=== PATIENT | male | born 1955 | race American Indian/Alaskan Native ===

== ENCOUNTER 2017-01-20 07:43 | Emergency (ER) | payer OTHER ==
[2017-01-20 08:28] LABS: Hematocrit 48.2 % (35.5-45.6); Mean Corpuscular HGB Conc 33 % (32-34); Mean Corpuscular Hemoglobin 28 pg (28-32); Mean Corpuscular Volume 85 fl (84-94); Platelet Count 136 K/mm3 (140-440); Red Cell Distribution Width 15.2 % (13.2-15.2)
[2017-01-20 08:31] LABS: White Blood Count 20.4 K/mm3 (4.5-11.0)
[2017-01-20 08:44] LABS: Anion Gap 22 mmol/L; BUN/Creatinine Ratio 20; Blood Urea Nitrogen 18 mg/dL (9-20); Calcium 9.4 mg/dL (8.4-10.2); Carbon Dioxide 21 mmol/L (22-30); Chloride 96.6 mmol/L (98-107); Glucose 154 mg/dL (75-100); Potassium 3.7 mmol/L (3.6-5.0); Sodium 136 mmol/L (137-145)
[2017-01-20 09:06] LABS: Bilirubin,Urine NEG (Negative); Blood,Urine SM (Negative); Ketones,Urine 20 mg/dL (Negative); Leukocyte Esterase,Urine SM (Negative); Mucus,Urine 3+ /HPF; Nitrite,Urine NEG (Negative)
[2017-01-20] MEDS ORDERED: ZOFRAN IV ONE (09:42)
[2017-01-20] MEDS ORDERED: CARAFATE PO ONE (09:42)
[2017-01-20] MEDS ORDERED: BENTYL PO ONE (09:42)
[2017-01-20] MEDS ORDERED: PEPCID IV ONE (09:42)
[2017-01-20] MEDS ORDERED: ALUM-MAG HYDROX-SIMETH 200-200-20MG/5ML PO ONE (09:42)
[2017-01-20] MEDS ORDERED: NACL 0.9% 1000 ML 2,000 ML IV ONE (09:42)
[2017-01-20] MEDS ORDERED: HYDROGEN PEROXIDE ONE (09:44)
--- NOTE | 2017-01-20 09:44 | Emergency Department Report ---
ED General Adult HPI - General Chief complaint: Nausea/Vomiting/Diarrhea Stated complaint: NAUSEA/VOMITING Time Seen by Provider: 01/20/17 09:27 Source: patient, RN notes reviewed Mode of arrival: Ambulatory Limitations: No Limitations - History of Present Illness Initial comments: This is a 62-year-old male. The patient is previously known to this provider. His primary care doctor is Dr. Alicia. He reports no past medical history. He presents to the ER with a complaint of left-sided ear pain, no tinnitus or vertigo, diffuse abdominal cramping, and multiple episodes of nausea, vomiting and diarrhea. His symptoms have been going on for 3 days. He describes multiple episodes of nonbloody emesis, sometimes green. Describes multiple episodes of diarrhea. No sick contacts at home, no recent antibiotic use. His symptoms are constant. They worsen when he eats. However, he is able to drink. He denies testicular pain, and he denies irritative/obstructive urinary symptoms. Abdominal cramping is "all over." -: Gradual Location: abdomen Radiation: abdomen Severity scale (0 -10): 10 Quality: other (cramping) Consistency: constant Improves with: rest Worsens with: eating Associated Symptoms: malaise, nausea/vomiting, weakness - Related Data Previous Rx's Medication Instructions Recorded Last Taken Type Dicyclomine [Bentyl] 10 mg PO QID PRN #20 capsule 01/20/17 Unknown Rx Ondansetron [Zofran Odt] 4 mg PO Q8HR PRN #20 tab.rapdis 01/20/17 Unknown Rx Promethazine [Phenergan SUPPOS] 50 mg RI Q6H PRN #20 supp.rect 01/20/17 Unknown Rx Allergies Allergy/AdvReac Type Severity Reaction Status Date / Time clindamycin [From Cleocin] Allergy Hives Verified 01/20/17 09:45 ED Review of Systems ROS: Stated complaint: NAUSEA/VOMITING Other details as noted in HPI Constitutional: malaise. denies: fever Eyes: denies: eye discharge ENT: denies: epistaxis Respiratory: denies: cough Cardiovascular: denies: chest pain Gastrointestinal: nausea, vomiting, diarrhea ED Past Medical Hx - Past Medical History Previous Medical History?: No - Surgical History Past Surgical History?: No - Social History Smoking Status: Current Every Day Smoker Substance Use Type: Other - Medications Home Medications: Home Medications Medication Instructions Recorded Confirmed Last Taken Type Dicyclomine [Bentyl] 10 mg PO QID PRN #20 capsule 01/20/17 Unknown Rx Ondansetron [Zofran Odt] 4 mg PO Q8HR PRN #20 tab.rapdis 01/20/17 Unknown Rx Promethazine [Phenergan SUPPOS] 50 mg RI Q6H PRN #20 supp.rect 01/20/17 Unknown Rx ED Physical Exam - General Limitations: No Limitations General appearance: alert, in no apparent distress - Head Head exam: Present: atraumatic, normocephalic - Eye Eye exam: Present: normal appearance, PERRL, EOMI, other (visual acuity intact to finger counting, color perception, reading at a close distance). Absent: nystagmus - ENT ENT exam: Present: normal exam, normal orophraynx, mucous membranes moist, TM's normal bilaterally, normal external ear exam, other (there is no mastoid tenderness. No vesicles noted) - Neck Neck exam: Present: normal inspection, full ROM. Absent: tenderness, meningismus - Respiratory Respiratory exam: Present: normal lung sounds bilaterally. Absent: respiratory distress, wheezes, chest wall tenderness - Cardiovascular Cardiovascular Exam: Present: normal rhythm, tachycardia, normal heart sounds. Absent: systolic murmur, diastolic murmur, rubs, gallop - GI/Abdominal GI/Abdominal exam: Present: soft, normal bowel sounds. Absent: distended, tenderness, guarding, rebound, rigid, pulsatile mass - Rectal Rectal exam: Present: deferred - Extremities Exam Extremities exam: Present: normal inspection, full ROM, normal capillary refill. Absent: calf tenderness - Back Exam Back exam: Present: normal inspection, full ROM. Absent: paraspinal tenderness , vertebral tenderness - Neurological Exam Neurological exam: Present: alert, oriented X3, normal gait, other (Extraocular movements intact. Tongue midline. No facial droop. Facial sensation intact to light touch in the V1, V2, V3 distribution bilaterally. 5 and 5 strength in 4 extremities.. Sensation is intact to light touch in 4 extremities.). Absent : motor sensory deficit - Psychiatric Psychiatric exam: Present: normal affect, normal mood - Skin Skin exam: Present: warm, dry, intact, normal color. Absent: rash ED Course Vital Signs 01/20/17 01/20/17 01/20/17 07:59 08:44 09:15 Temperature 98.2 F 97.8 F 98.5 F Pulse Rate 115 H 98 H 111 H Respiratory 18 16 16 Rate Blood Pressure 122/86 Blood Pressure 145/83 129/80 [Left] O2 Sat by Pulse 99 99 98 Oximetry 01/20/17 01/20/17 01/20/17 09:16 11:30 13:06 Temperature 98.5 F Pulse Rate 84 84 Respiratory 21 20 Rate Blood Pressure Blood Pressure 127/80 130/77 [Left] O2 Sat by Pulse 98 98 Oximetry ED Medical Decision Making - Lab Data Result diagrams: 01/20/17 08:06 01/20/17 08:06 Vital Signs 01/20/17 01/20/17 01/20/17 07:59 08:44 09:15 Temperature 98.2 F 97.8 F 98.5 F Pulse Rate 115 H 98 H 111 H Respiratory 18 16 16 Rate Blood Pressure 122/86 Blood Pressure 145/83 129/80 [Left] O2 Sat by Pulse 99 99 98 Oximetry 01/20/17 01/20/17 09:16 11:30 Temperature Pulse Rate 84 Respiratory 21 20 Rate Blood Pressure Blood Pressure 127/80 [Left] O2 Sat by Pulse 98 98 Oximetry Lab Results 01/20/17 01/20/17 01/20/17 Range/Units 08:06 08:06 08:27 WBC 20.4 H (4.5-11.0) K/mm3 RBC 5.70 H (3.65-5.03) M/mm3 Hgb 16.0 H (11.8-15.2) gm/dl Hct 48.2 H (35.5-45.6) % MCV 85 (84-94) fl MCH 28 (28-32) pg MCHC 33 (32-34) % RDW 15.2 (13.2-15.2) % Plt Count 136 L (140-440) K/mm3 Add Manual Diff Complete Total Counted 100 Band Neutrophils % 0 % Lymphocytes % (Manual) 2.0 L (13.4-35.0) % Reactive Lymphs % (Man) 2.0 % Monocytes % (Manual) 3.0 (0.0-7.3) % Eosinophils % (Manual) 0 (0.0-4.3) % Basophils % (Manual) 0 (0.0-1.8) % Metamyelocytes % 0 % Myelocytes % 0 % Promyelocytes % 0 % Blast Cells % 0 % Nucleated RBC % Not Reportable Seg Neutrophils # Man 19.0 H (1.8-7.7) K/mm3 Band Neutrophils # 0.0 K/mm3 Lymphocytes # (Manual) 0.4 L (1.2-5.4) K/mm3 Abs React Lymphs (Man) 0.4 K/mm3 Monocytes # (Manual) 0.6 (0.0-0.8) K/mm3 Eosinophils # (Manual) 0.0 (0.0-0.4) K/mm3 Basophils # (Manual) 0.0 (0.0-0.1) K/mm3 Metamyelocytes # 0.0 K/mm3 Myelocytes # 0.0 K/mm3 Promyelocytes # 0.0 K/mm3 Blast Cells # 0.0 K/mm3 WBC Morphology Not Reportable Hypersegmented Neuts Not Reportable Hyposegmented Neuts Not Reportable Hypogranular Neuts Not Reportable Smudge Cells Not Reportable Toxic Granulation Rare Toxic Vacuolation Rare Dohle Bodies Not Reportable Pelger-Huet Anomaly Not Reportable Manpreet Rods Not Reportable Platelet Estimate Cons Clumped Platelets Not Reportable Plt Clumps, EDTA Not Reportable Large Platelets Not Reportable Giant Platelets Not Reportable Platelet Satelliting Not Reportable Plt Morphology Comment Not Reportable RBC Morphology Normal Dimorphic RBCs Not Reportable Polychromasia Not Reportable Hypochromasia Not Reportable Poikilocytosis Not Reportable Anisocytosis Not Reportable Microcytosis Not Reportable Macrocytosis Not Reportable Spherocytes Not Reportable Pappenheimer Bodies Not Reportable Sickle Cells Not Reportable Target Cells Not Reportable Tear Drop Cells Not Reportable Ovalocytes Not Reportable Helmet Cells Not Reportable [place] Bodies Not Reportable Sullivan Rings Not Reportable [place] Cells Not Reportable Bite Cells Not Reportable Crenated Cell Not Reportable Elliptocytes Not Reportable Acanthocytes (Spur) Not Reportable Rouleaux Not Reportable Hemoglobin C Crystals Not Reportable Schistocytes Not Reportable Malaria parasites Not Reportable Cornel Bodies Not Reportable Hem Pathologist Commnt No Sodium 136 L (137-145) mmol/L Potassium 3.7 (3.6-5.0) mmol/L Chloride 96.6 L (98-107) mmol/L Carbon Dioxide 21 L (22-30) mmol/L Anion Gap 22 mmol/L BUN 18 (9-20) mg/dL Creatinine 0.9 (0.8-1.5) mg/dL Estimated GFR > 60 ml/min BUN/Creatinine Ratio 20 % Glucose 154 H (75-100) mg/dL Calcium 9.4 (8.4-10.2) mg/dL Total Bilirubin (0.1-1.2) mg/dL Direct Bilirubin (0-0.2) mg/dL Indirect Bilirubin mg/dL AST (5-40) units/L ALT (7-56) units/L Alkaline Phosphatase (35-129) units/L Total Protein (6.3-8.2) g/dL Albumin (3.9-5) g/dL Albumin/Globulin Ratio % Lipase (13-60) units/L Urine Color [place] (Yellow) Urine Turbidity Clear (Clear) Urine pH 5.0 (5.0-7.0) Ur Specific [place] 1.029 (1.003-1.030) Urine Protein 100 mg/dl (Negative) mg/dL Urine Glucose (UA) Neg (Negative) mg/dL Urine Ketones 20 (Negative) mg/dL Urine Blood Sm (Negative) Urine Nitrite Neg (Negative) Urine Bilirubin Neg (Negative) Urine Urobilinogen 2.0 (<2.0) mg/dL Ur Leukocyte Esterase Sm (Negative) Urine WBC (Auto) 51.0 H (0.0-6.0) /HPF Urine RBC (Auto) 4.0 (0.0-6.0) /HPF U Epithel Cells (Auto) < 1.0 (0-13.0) /HPF Hyaline Casts 13 /LPF Urine Mucus 3+ /HPF 11/12/17 Range/Units 11:14 WBC (4.5-11.0) K/mm3 RBC (3.65-5.03) M/mm3 Hgb (11.8-15.2) gm/dl Hct (35.5-45.6) % MCV (84-94) fl MCH (28-32) pg MCHC (32-34) % RDW (13.2-15.2) % Plt Count (140-440) K/mm3 Add Manual Diff Total Counted Band Neutrophils % % Lymphocytes % (Manual) (13.4-35.0) % Reactive Lymphs % (Man) % Monocytes % (Manual) (0.0-7.3) % Eosinophils % (Manual) (0.0-4.3) % Basophils % (Manual) (0.0-1.8) % Metamyelocytes % % Myelocytes % % Promyelocytes % % Blast Cells % % Nucleated RBC % Seg Neutrophils # Man (1.8-7.7) K/mm3 Band Neutrophils # K/mm3 Lymphocytes # (Manual) (1.2-5.4) K/mm3 Abs React Lymphs (Man) K/mm3 Monocytes # (Manual) (0.0-0.8) K/mm3 Eosinophils # (Manual) (0.0-0.4) K/mm3 Basophils # (Manual) (0.0-0.1) K/mm3 Metamyelocytes # K/mm3 Myelocytes # K/mm3 Promyelocytes # K/mm3 Blast Cells # K/mm3 WBC Morphology Hypersegmented Neuts Hyposegmented Neuts Hypogranular Neuts Smudge Cells Toxic Granulation Toxic Vacuolation Dohle Bodies Pelger-Huet Anomaly Manpreet Rods Platelet Estimate Clumped Platelets Plt Clumps, EDTA Large Platelets Giant Platelets Platelet Satelliting Plt Morphology Comment RBC Morphology Dimorphic RBCs Polychromasia Hypochromasia Poikilocytosis Anisocytosis Microcytosis Macrocytosis Spherocytes Pappenheimer Bodies Sickle Cells Target Cells Tear Drop Cells Ovalocytes Helmet Cells [place] Bodies Sullivan Rings [place] Cells Bite Cells Crenated Cell Elliptocytes Acanthocytes (Spur) Rouleaux Hemoglobin C Crystals Schistocytes Malaria parasites Cornel Bodies Hem Pathologist Commnt Sodium (137-145) mmol/L Potassium (3.6-5.0) mmol/L Chloride (98-107) mmol/L Carbon Dioxide (22-30) mmol/L Anion Gap mmol/L BUN (9-20) mg/dL Creatinine (0.8-1.5) mg/dL Estimated GFR ml/min BUN/Creatinine Ratio % Glucose (75-100) mg/dL Calcium (8.4-10.2) mg/dL Total Bilirubin 0.90 (0.1-1.2) mg/dL Direct Bilirubin 0.2 (0-0.2) mg/dL Indirect Bilirubin 0.7 mg/dL AST 14 (5-40) units/L ALT 13 (7-56) units/L Alkaline Phosphatase 106 (35-129) units/L Total Protein 8.7 H (6.3-8.2) g/dL Albumin 4.1 (3.9-5) g/dL Albumin/Globulin Ratio 0.9 % Lipase 13 (13-60) units/L Urine Color (Yellow) Urine Turbidity (Clear) Urine pH (5.0-7.0) Ur Specific [place] (1.003-1.030) Urine Protein (Negative) mg/dL Urine Glucose (UA) (Negative) mg/dL Urine Ketones (Negative) mg/dL Urine Blood (Negative) Urine Nitrite (Negative) Urine Bilirubin (Negative) Urine Urobilinogen (<2.0) mg/dL Ur Leukocyte Esterase (Negative) Urine WBC (Auto) (0.0-6.0) /HPF Urine RBC (Auto) (0.0-6.0) /HPF U Epithel Cells (Auto) (0-13.0) /HPF Hyaline Casts /LPF Urine Mucus /HPF - Radiology Data Radiology results: report reviewed, image reviewed CT scan of the brain: No acute disease, ear exam are unremarkable. 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 His pancreatic lymphadenopathy of uncertain significance. No indication of acute or pancreatitis as noted, no pancreatic masses noted on this noncontrast exam. Extensive diverticulosis, but no diverticulitis. There are a few tiny retroperitoneal para-aortic lymph nodes. Calcifications noted on the abdominal aorta and iliac arteries. Infrarenal abdominal aortic aneurysm is noted at 3.7 cm. - Medical Decision Making Differential diagnosis, including but not limited to: Hepatitis, cirrhosis, pancreatitis, gastroenteritis, otitis cancer/tumor/malignancy, Assessment and plan: Assessment and plan: 62-year-old male with a primary complaint of abdominal cramping, nausea, vomiting, diarrhea. He is initially tachycardic however this resolved with IV fluids. He is given nonnarcotic pain medication and nausea medication. He is able to tolerate liquid feeds. His tachycardia resolved. His leukocytosis is appreciated, clinically the patient's presentation is most likely consistent with a viral gastroenteritis. A noncontrast CT scan of the brain was negative, and his head and neck, cranial nerve and neurologic examinations were unremarkable and within normal limits. There was no specific clinical or radiographic indication of shingles, zoster, mastoiditis, otitis externa, or otitis media. A noncontrast CT scan of the abdomen and pelvis demonstrated no acute surgical condition, but did demonstrate numerous incidental findings which require follow -up. Patient will be referred to his primary care doctor for his nonspecific adenopathy, and nonspecific pancreatic abnormality. Patient was given a copy of his CT scan report, instructed to follow up shortly, to exclude cancer, tumor , malignancy. His liver panel was unremarkable, there is no upper abdominal tenderness, he is not jaundiced, and his lipase is also unremarkable. Patient may have a component of chronic undiagnosed cirrhosis. This can be followed up by either his primary care doctor, or by gastroenterology. Patient given copy of his laboratory studies, CT scan reports, and he is instructed to abstain from alcohol consumption, abstain from ibuprofen and acetaminophen consumption, and he is instructed to follow-up in outpatient quarry equipment operator. Return precautions are reviewed. Critical care attestation.: If time is entered above; I have spent that time in minutes in the direct care of this critically ill patient, excluding procedure time. ED Disposition Clinical Impression: Nausea vomiting and diarrhea Disposition: DC-01 TO HOME OR SELFCARE Is pt being admited?: No Does the pt Need Aspirin: No Condition: Stable Instructions: Gastroenteritis (ED) Additional Instructions: Take the pain medication, nausea medications as needed/directed. Avoid consumption of alcohol, acetaminophen, ibuprofen, aspirin, Naprosyn until either a primary care doctor or quarry equipment operator there is you to do so. Symptoms today most likely coming from gastroenteritis/viral syndrome. However , CT scan of the abdomen and pelvis demonstrated numerous incidental findings which require follow-up. Follow-up with your primary care doctor within the next month. CT scan of the abdomen and pelvis suggested cirrhosis of the liver. This can and should be followed up by either your primary care doctor or quarry equipment operator within the next month. Dr. Kimberly Ceron is a local quarry equipment operator. CT scan of the abdomen and pelvis also suggested nonspecific lymph nodes in the abdomen/pelvis, and nonspecific pancreatic abnormalities. Follow-up with your primary care doctor or gastroenterology for this within the next month. Not following up for this as recommended a resultant undiagnosed tumor, cancer, malignancy. CT scan of the abdomen and pelvis also demonstrated a 3.7 cm abdominal aortic aneurysm. This is to be followed up by a vascular surgeon. Dr. David is a local vascular surgeon. Follow up with a vascular surgeon within the next 4-6 weeks. Return to the ER right away with new pain, worsened pain, migration of pain, fevers, chills, lethargy, irritability, projectile vomiting, change in mental status, confusion, inability to tolerate liquid feeds. Advance diet gently as tolerated, starting with bread, rice, apples, toast, then advance to solids as tolerated. Avoid consumption of heavy and spicy foods. Prescriptions: Dicyclomine [Bentyl] 10 mg PO QID PRN #20 capsule PRN Reason: Pain Ondansetron [Zofran Odt] 4 mg PO Q8HR PRN #20 tab.rapdis PRN Reason: Nausea Promethazine [Phenergan SUPPOS] 50 mg RI Q6H PRN #20 supp.rect PRN Reason: Nausea Referrals: PRIMARY CARE, [Primary Care Provider] - 3-5 Days DARIN ALICIA MD [Staff Physician] - 3-5 Days KIMBERLY CERON MD [Staff Physician] - 3-5 Days MICHOACANO DAVID MD [Staff Physician] - 3-5 Days Forms: Work/School Release Form(ED)
[2017-01-20 10:23] LABS: Basophils % (Manual) 0 % (0.0-1.8); Blastocytes % (Manual) 0 %; Eosinophils % (Manual) 0 % (0.0-4.3)
[2017-01-20 10:24] LABS: Diff Status Complete; Platelet Estimate Cons; RBC Morphology Normal; Toxic Granulation Rare; Toxic Vacuolation Rare
--- NOTE | 2017-01-20 10:49 | Cat Scan Report ---
CT HEAD WITHOUT CONTRAST: 01/20/17 07:43:00 CLINICAL: Left ear pain. TECHNIQUE: 2.5-mm noncontrast scans. COMPARISON:None FINDINGS: The ventricles and sulci are normal for age. No abnormal density. No mass or mass effect. No hemorrhage, edema or extra-axial collection. The sinuses are clear. Although this exam is not tailored for the ear, the left ear and left mastoid air cells are unremarkable. Normal orbits and soft tissues. The calvarium and skull base are intact. IMPRESSION: Normal study.
--- NOTE | 2017-01-20 11:02 | Cat Scan Report ---
CT ABDOMEN AND PELVIS WITHOUT CONTRAST: 01/20/17 07:43:00 CLINICAL:Abdominal pain. TECHNIQUE: Volumetric acquisition and 1.25 millimeter scan reconstructions from the lung bases through the pelvis. The study was performed without oral contrast. FINDINGS: Abdomen: The liver is small with the right lobe measuring 9.6 cm in length. However, normal liver contour with no nodularity or mass identified. Portosystemic collaterals are identified throughout the upper abdomen and there are gastric and splenic varices. No obvious portal vein thrombosis. The spleen is small and measures 9 cm in length. Normal gallbladder and bile ducts. Normal stomach, duodenum duodenum and pancreas. Too numerous to count small peripancreatic lymph nodes. A few tiny retroperitoneal para-aortic lymph nodes. No ascites and no pneumoperitoneum. The small bowel is normal. Diverticulosis throughout the colon but no signs of diverticulosis. The appendix is well limits of normal. Moderate calcification of the abdominal aorta and iliac arteries. An infrarenal abdominal aortic aneurysm measures 3.7 cm in diameter. No suspicion of rupture. The adrenal glands and kidneys are normal. The renal collecting systems and ureters are nondilated. No urinary calculus. Pelvis: Normal urinary bladder and rectum.The prostate is mildly enlarged and measures 5.4 x 3.5 cm. Normal seminal vesicles. Bilateral fat containing inguinal hernias. IMPRESSION: 1. 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 2. No cholelithiasis. 3. Peripancreatic lymphadenopathy of uncertain significance. No signs of acute or chronic pancreatitis and no pancreatic mass identified on this noncontrast exam. 4. Extensive diverticulosis but no diverticulitis. 5. Prostate enlargement.
[2017-01-20 11:40] LABS: Albumin 4.1 g/dL (3.9-5); Albumin/Globulin Ratio 0.9 %; Bilirubin,Direct 0.2 mg/dL (0-0.2); Bilirubin,Indirect 0.7 mg/dL; Bilirubin,Total 0.9 mg/dL (0.1-1.2); Total Protein 8.7 g/dL (6.3-8.2)
[2017-01-20 13:07] VITALS: BP 130/77
== END 2017-01-20 12:45 | disposition home or self-care (01) ==
LOC: ED 07:43
DX: R11.2 Nausea with vomiting, unspecified (principal); R19.7 Diarrhea, unspecified; F17.200 Nicotine dependence, unspecified, uncomplicated; Z88.8 Allergy status to other drugs, medicaments and biological substances
CPT/HCPCS: 36415; 70450; 74176; 80048; 80074; 81001; 82248; 83690; 85007; 85025; 96361; 96374; 96375; 99284; J2405; J7030

== ENCOUNTER 2018-06-19 08:40 | Emergency (ER) | payer OTHER ==
--- NOTE | 2018-06-19 09:48 | Ultrasound Report ---
ULTRASOUND TESTICULAR DOPPLER COMPLETE History: Swollen testicles. Technique: Trans-scrotal ultrasound with spectral doppler interrogation. Findings: The right testicle measures 4.2 x 2.7 x 2.6 cm. No testicular mass or cyst is identified. The right epididymis is markedly enlarged and heterogeneous. There is a moderate simple appearing right hydrocele. The left testicle measures 4.5 x 1.8 x 2.8 cm. No testicular mass or cyst is identified. The left epididymis appears normal size and echotexture although a large cyst in the left epididymal head measures 1.4 x 1.9 x 1.6 cm consistent with a simple cyst or spermatocele. No left hydrocele. Spectral Doppler interrogation demonstrates arterial flow to both testes. The right testicle and epididymis appears hyperemic. IMPRESSION: Right epididymoorchitis. Moderate right hydrocele. Left epididymal head cyst versus spermatocele.
[2018-06-19] MEDS ORDERED: MORPHINE IV ONE (10:53)
[2018-06-19] MEDS ORDERED: TORADOL IV ONE (10:53)
[2018-06-19] MEDS ORDERED: ZOFRAN IV ONE (10:53)
[2018-06-19] MEDS ORDERED: LEVAQUIN PO ONE (10:58)
--- NOTE | 2018-06-19 12:55 | Cat Scan Report ---
PROCEDURE: CT ABDOMEN PELVIS WO CON TECHNIQUE: Noncontrast CT of the abdomen and pelvis was performed. No IV or oral contrast administere d. Axial images and coronal and sagittal reformatted images were obtained. HISTORY: right flank pain testicular pain COMPARISON: None FINDINGS: There are coronary artery calcifications. There is some emphysematous changes in visualized lower lobes. There is no nephrolithiasis, hydronephrosis or other evidence for acute obstructive uropathy. Within the limitations of a noncontrast exam, the visualized liver, spleen, pancreas, adrenal gland s and kidneys demonstrate no significant abnormality. The appendix is normal. There is no evidence for intestinal obstruction. There is diverticulosis predominantly involving the left colon. There is no acute diverticulitis seen . There is diffuse aortic ectasia with a mid to distal abdominal aortic aneurysm measuring up to 3.7 cm AP. There are aortoiliac atherosclerotic calcifications. Bladder is unremarkable. There is a small fat-containing right direct inguinal hernia. There is a right scrotal hydrocele. IMPRESSION: Coronary and aortic atherosclerotic calcifications. 3.7 cm mid to distal abdominal aortic aneurysm. Small direct inguinal hernia containing fat on the right. Right scrotal hydrocele. Diverticulosis involving left colon. No acute diverticulitis seen. This document is electronically signed by Desi Dean MD., June 19 2018 12:52:48 PM ET
[2018-06-19 13:44] VITALS: BP 130/82
--- NOTE | 2018-06-19 13:57 | Emergency Department Report ---
ED Male HPI - General Chief complaint: Urogenital-Male Stated complaint: TESTICLES SWOLLEN Time Seen by Provider: 06/19/18 09:32 Source: patient Mode of arrival: Ambulatory Limitations: No Limitations - History of Present Illness Initial comments: Mr. Mckinnon is a healthy 63-year-old male without significant past medical history presents with right testicular pain and swelling gradual onsett 1 day ago. He also has associated right flank pain which radiates from the right flank and right lower quadrant. Had difficulty working due to the pain. No history of dysuria or urinary hesitation. No history of prostate issues as he can recall. He is monogamous with his . Does not primary care physician. Denies fever. Denies vomiting. Denies trauma. Has previously been treated by the [facility]. Complaint: testicle pain, testicle swelling -: Gradual, days(s) (1) Location: right testicle Severity: severe Quality: aching Consistency: constant Improves with: none Worsens with: palpation, movement swelling - Related Data Previous Rx's Medication Instructions Recorded Last Taken Type Dicyclomine [Bentyl] 10 mg PO QID PRN #20 capsule 01/20/17 Unknown Rx Ondansetron [Zofran Odt] 4 mg PO Q8HR PRN #20 tab.rapdis 01/20/17 Unknown Rx Promethazine [Phenergan SUPPOS] 50 mg GA Q6H PRN #20 supp.rect 01/20/17 Unknown Rx HYDROcodone/APAP 5-325 [[place] 1 each PO Q6HR PRN #15 tablet 06/19/18 Unknown Rx 5/325] levoFLOXacin [Levaquin TAB] 500 mg PO QDAY 10 Days #20 tablet 06/19/18 Unknown Rx Allergies Allergy/AdvReac Type Severity Reaction Status Date / Time clindamycin [From Cleocin] Allergy Hives Verified 06/19/18 08:41 ED Review of Systems ROS: Stated complaint: TESTICLES SWOLLEN Other details as noted in HPI Comment: All other systems reviewed and negative Constitutional: denies: fever, malaise Respiratory: denies: cough Cardiovascular: denies: chest pain ED Past Medical Hx - Past Medical History Previous Medical History?: No - Surgical History Past Surgical History?: Yes Additional Surgical History: CERVICAL LYMPH NODES REMOVED ON LEFT - Social History Smoking Status: Current Every Day Smoker Substance Use Type: None - Medications Home Medications: Home Medications Medication Instructions Recorded Confirmed Last Taken Type Dicyclomine [Bentyl] 10 mg PO QID PRN #20 capsule 01/20/17 Unknown Rx Ondansetron [Zofran Odt] 4 mg PO Q8HR PRN #20 tab.rapdis 01/20/17 Unknown Rx Promethazine [Phenergan SUPPOS] 50 mg GA Q6H PRN #20 supp.rect 01/20/17 Unknown Rx HYDROcodone/APAP 5-325 [[place] 1 each PO Q6HR PRN #15 tablet 06/19/18 Unknown Rx 5/325] levoFLOXacin [Levaquin TAB] 500 mg PO QDAY 10 Days #20 tablet 06/19/18 Unknown Rx ED Physical Exam - General Limitations: No Limitations General appearance: alert, in no apparent distress - Head Head exam: Present: atraumatic, normocephalic - Eye Eye exam: Present: normal appearance - ENT ENT exam: Present: mucous membranes moist - Neck Neck exam: Present: normal inspection, full ROM - Respiratory Respiratory exam: Present: normal lung sounds bilaterally. Absent: respiratory distress, wheezes, rales, rhonchi - Cardiovascular Cardiovascular Exam: Present: regular rate, normal rhythm, normal heart sounds. Absent: systolic murmur, diastolic murmur, rubs, gallop - GI/Abdominal GI/Abdominal exam: Present: soft, normal bowel sounds. Absent: distended, tenderness, guarding, rebound - Rectal Rectal exam: Present: deferred - exam: Present: testicular tenderness, scrotal swelling, vertical testicular lie - Extremities Exam Extremities exam: Present: normal inspection - Back Exam Back exam: Present: normal inspection - Neurological Exam Neurological exam: Present: alert, oriented X3 - Psychiatric Psychiatric exam: Present: normal affect, normal mood - Skin Skin exam: Present: warm, dry, intact, normal color. Absent: rash ED Course Vital Signs 06/19/18 06/19/18 06/19/18 08:53 11:00 12:00 Temperature 98.2 F 98.4 F Pulse Rate 104 H 79 Respiratory 16 19 18 Rate Blood Pressure 152/75 Blood Pressure 122/79 [Left] O2 Sat by Pulse 99 100 99 Oximetry 06/19/18 13:30 Temperature 98.4 F Pulse Rate 79 Respiratory 19 Rate Blood Pressure Blood Pressure 130/82 [Left] O2 Sat by Pulse 98 Oximetry ED Medical Decision Making - Radiology Data Radiology results: report reviewed Ultrasound with right-sided epididymitis orchitis CT abdomen and pelvis: 3.7 cm aortic abdominal aneurysm - Medical Decision Making Mr. Mckinnon presents with epididymitis otitis right sided. Prescription for levofloxacin and norco. Referred to urology. Incidental aortic abdominal aneurysm 3.[address] scan without evidence of rupture or dissection.. He understands to have this evaluated and followed by a primary physician. Critical care attestation.: If time is entered above; I have spent that time in minutes in the direct care of this critically ill patient, excluding procedure time. ED Disposition Clinical Impression: Acute right flank pain, Acute epididymitis, Aortic aneurysm, abdominal Disposition: - TO HOME OR SELFCARE Is pt being admited?: No Does the pt Need Aspirin: No Condition: Stable Instructions: Epididymitis (ED) Additional Instructions: You have an abdominal aortic aneurysm which needs to be followed at least once a year. Please keep the CT report provided.. Prescriptions: levoFLOXacin [Levaquin TAB] 500 mg PO QDAY 10 Days #20 tablet HYDROcodone/APAP 5-325 [[place] 5/325] 1 each PO Q6HR PRN #15 tablet PRN Reason: Pain Referrals: KASSY WALLACE DO [Staff Physician] - 3-5 Days VARINDER MCKEON MD [Staff Physician] - 3-5 Days Forms: Accompanied Note, Work/School Release Form(ED)
== END 2018-06-19 13:30 | disposition home or self-care (01) ==
LOC: ED 08:40
DX: N45.1 Epididymitis (principal); I71.9 Aortic aneurysm of unspecified site, without rupture
CPT/HCPCS: 74176; 93975; 96374; 96375; 99283; J1885; J2270; J2405

== ENCOUNTER 2018-07-18 13:01 | Outpatient (CLI) | payer OTHER ==
--- NOTE | 2018-07-22 15:58 | XRay Report ---
XRAY CHEST TWO VIEWS: 07/18/18 13:01:00 CLINICAL: Cough. COMPARISON: None FINDINGS: The lungs are mildly hyperexpanded and hyperlucent.No airspace disease or pleural effusion. Normal heart and pulmonary vessels.The bones and soft tissues are normal. IMPRESSION: Mild COPD. No acute cardiopulmonary process.
== END 2018-07-18 13:02 | disposition home or self-care (01) ==
LOC: XRAY 13:01
PROVIDERS: ATTEND Internal Medicine Hematology & Oncology
DX: J44.9 Chronic obstructive pulmonary disease, unspecified (principal)
CPT/HCPCS: 71046